=== PATIENT | male | born 1955 | race American Indian/Alaskan Native ===

== ENCOUNTER 2018-12-16 09:05 | Outpatient (CLI) | payer BC ==
[2018-12-16 09:54] LABS: Hematocrit 44.7 % (35.5-45.6); Hemoglobin 14.9 gm/dl (11.8-15.2); Mean Corpuscular HGB Conc 33 % (32-34); Mean Corpuscular Volume 86 fl (84-94); Platelet Count 346 K/mm3 (140-440); Red Cell Distribution Width 16.8 % (13.2-15.2)
[2018-12-16 10:11] LABS: Alanine Aminotransferase 17 units/L (7-56); Albumin 4.5 g/dL (3.9-5); BUN/Creatinine Ratio 19; Blood Urea Nitrogen 17 mg/dL (9-20); Hemolysis Index 2
[2018-12-16 10:19] LABS: Erythrocyte Sedimentation Rate 5 mm/Hr (0-20)
[2018-12-18 07:08] LABS: HIV-1 Antibody Differentiation SEE SCANNED RESULT; HIV-2 Antibody Differentiation SEE SCANNED RESULT
[2018-12-18 12:01] LABS: Vitamin D, 25-OH, D2 <4 ng/mL
[2018-12-19 12:05] LABS: ANA Screen, IFA Negative (Negative)
== END 2018-12-16 09:06 | disposition home or self-care (01) ==
LOC: LAB 09:05
PROVIDERS: ATTEND Specialist
DX: G95.9 Disease of spinal cord, unspecified (principal)
CPT/HCPCS: 36415; 80053; 82306; 82607; 83036; 83921; 84443; 85027; 85652; 86038; 86334; 86592; 86689